=== PATIENT | male | born 1995 | race Caucasian/White ===

== ENCOUNTER 2022-01-25 07:26 | Outpatient (REF) | payer OTHER, SELFPAY ==
[2022-01-25 12:14] LABS: Alanine Aminotransferase 61 U/L (0-40); Albumin Level 4.6 g/dL (3.5-5.0); Alkaline Phosphatase 77 U/L (39-117); Anion Gap 13 (12-20); Aspartate Amino Transferase 35 U/L (5-37); Bilirubin Total 0.9 mg/dL (0.0-1.0); Blood Urea Nitrogen 10 mg/dL (9-16); Calcium 9.8 mg/dL (8.4-10.2); Carbon Dioxide 29 mmol/L (22-29); Chloride 102 mmol/L (96-108); Cholesterol 183 mg/dL; Estimated Glomerular Filt Rate > 60; Glucose Fasting 104 mg/dL (60-99); HDL Cholesterol 57 mg/dL; LDL Cholesterol Calculated 105 mg/dl; Sodium 140 mmol/L (135-145); Total Protein 7.5 g/dL (6.5-8.0); Triglycerides 107 mg/dL
[2022-01-25 12:15] LABS: HBS Num1 1.11 mIU/mL (0-7.99); HBc Num1 0.17 S/CO (0.00-0.79); HBsAGNum1 0.18 S/CO (0.00-0.99); HIV AB/AG Nonreactive (Nonreactive); HIV Num 1 0.07 S/CO (0.00-0.99); Hepatitis B Core Antibody Nonreactive (Nonreactive); Hepatitis B Surface Antigen Negative (Negative); ~HepC Num1 0.11 S/CO (0.00-0.79); ~Hepatitis B Surface Antibody NONREACTIVE (Nonreactive); ~Hepatitis C Antibody Nonreactive (Nonreactive)
[2022-01-25 12:21] LABS: Syphilis Screen Nonreactive (Nonreactive)
[2022-01-25 12:37] LABS: TSH reflex Free T4 1.52 uIU/mL (0.32-4.0)
== END 2022-01-25 07:27 | disposition home or self-care (01) ==
LOC: HO.WFDLDS 07:26
PROVIDERS: Visit Provider Family Medicine
DX: Z00.00 Encounter for general adult medical examination without abnormal findings (principal); Z11.3 Encounter for screening for infections with a predominantly sexual mode of transmission
CPT/HCPCS: 36415; 80053; 80061; 84443; 86704; 86706; 86780; 86803; 87340; 87389

== ENCOUNTER 2022-01-26 14:07 | Outpatient (REF) | payer OTHER, SELFPAY ==
[2022-01-27 13:40] LABS: CT PCR NOT DETECTED (Not Detect.); NG PCR NOT DETECTED (Not Detect.)
== END 2022-01-26 14:08 | disposition home or self-care (01) ==
LOC: HO.LNP 14:07
PROVIDERS: Visit Provider Family Medicine
DX: Z00.00 Encounter for general adult medical examination without abnormal findings (principal); R74.01 Elevation of levels of liver transaminase levels; Z11.3 Encounter for screening for infections with a predominantly sexual mode of transmission
CPT/HCPCS: 87491; 87591

== ENCOUNTER 2022-04-13 10:52 | Outpatient (REF) | payer OTHER, SELFPAY ==
[2022-04-13 13:58] LABS: Estimated Average Glucose 85 mg/dL; Hemoglobin A1c % 4.6 %
[2022-04-13 14:35] LABS: Alanine Aminotransferase 45 U/L (0-40); Albumin Level 4.9 g/dL (3.5-5.0); Alkaline Phosphatase 65 U/L (39-117); Anion Gap 12 (12-20); Aspartate Amino Transferase 24 U/L (5-37); Bilirubin Total 1.2 mg/dL (0.0-1.0); Blood Urea Nitrogen 11 mg/dL (9-16); Calcium 9.6 mg/dL (8.4-10.2); Carbon Dioxide 25 mmol/L (22-29); Chloride 104 mmol/L (96-108); Estimated Glomerular Filt Rate > 60; Glucose Fasting 79 mg/dL (60-99); Potassium 3.8 mmol/L (3.3-5.1); Sodium 137 mmol/L (135-145); Total Protein 7.5 g/dL (6.5-8.0)
== END 2022-04-13 10:53 | disposition home or self-care (01) ==
LOC: HO.WFDLDS 10:52
PROVIDERS: Visit Provider Family Medicine
DX: Z00.00 Encounter for general adult medical examination without abnormal findings (principal); R73.01 Impaired fasting glucose; R74.01 Elevation of levels of liver transaminase levels
CPT/HCPCS: 36415; 80053; 83036

== ENCOUNTER 2024-02-05 08:50 | Outpatient (AMB) | payer BC, SELFPAY ==
--- NOTE | 2024-02-05 08:58 | MHC.OFFWIV ---
Intake Vital Signs 02/05/24 09:09 Height 5 ft 10 in Weight 195 lb BMI 28.0 BP 120/80 Blood Pressure Location Lt brachial Position Sitting Pulse 104 H Pulse Source Pulse Oximeter Temp 97.8 F Temp Source Temporal Artery Scan Intake Visit Reasons: EST/sinus pressure (lobby masked) Intake Note: pt is here today for sinus pressure started 1 week ago Patient Tobacco Use Status: Never used Tobacco Allergies carbamazepine [From Tegretol] Allergy (Mild, Verified 02/05/24 09:32) Hives cefprozil Allergy (Mild, Verified 02/05/24 09:32) Hives Medication List - Last Reconciled 02/05/24 by NADYA Peters azithromycin 500 mg PO DAILY Do you need a note to return to daycare/school/sports/work: Yes HPI HPI Comments History of Present Illness Details Patient is a 28-year-old male in today for sick visit. Reports that for the past week he has developed symptoms of sore throat, cough, sinus tenderness, headache. Has use [id number] ibuprofen with mild effect. States that he started to feel worse 2-3 days prior where he had chills at night. Reports 1 sick contact. Denies chest pain or shortness of breath. Denies nausea vomiting diarrhea denies any tingling or numbness. [facility] Medical History (Updated 02/05/24 @ 09:31 by NADYA Peters) Difficulty concentrating Social History Housing: House Patient Tobacco Use Status: Never used Tobacco e-Cigarette/Vaping Use: Never Used Second Hand Smoke Exposure: No service: No Current occupational status: employed Current occupational exposures/hazards: No Cognitive needs: No Hearing needs: No Vision needs: No Review of Systems Const All systems reviewed & are unremarkable except as noted in HPI and below Physical Exam Vital Signs: Last Vital Signs Temp 97.8 F 02/05/24 09:09 Pulse 104 H 02/05/24 09:09 BP 120/80 02/05/24 09:09 BMI result Body Mass Index 28.0 Const Other: Appearance: Alert.? Oriented X3.? No acute distress.? Head: Normocephalic, atraumatic, no step-offs or deformities Eyes: Pupils equal, round and reactive to light.?Sclera white. ENT: Pharynx erythema +tonsilar exudates. TM intact and pearly christy. + sinus tenderness. Neck: Normal inspection.? Neck supple.?Full ROM. CVS: Normal heart rate and rhythm.? Pulses normal.? Respiratory: No respiratory distress.? Breath sounds normal.? Neuro: Oriented X 3.? Results AMB Rapid Strep AMB Rapid Strep Negative Last Edit by Shayy Tillman MA on 02/05/24 09:34 Assessment & Plan Assessment & Plan (1) Strep throat: Comment: Obtain URI and strep swab. Patient clinical presentation consistent with strep throat +2 tonsils, erythema, +exudate. Will give patient azithromycin. Code(s): J02.0 - Streptococcal pharyngitis Plan: Take your medications as prescribed. If you were prescribed antibiotics today, it is important that you take your medication to their entirety, do not skip any doses, do not finish them early. Follow-up with your primary care provider this week. Return to the emergency department with new or worsening symptoms. Such as fevers, chills, chest pain, shortness of breath, nausea, vomiting, dizziness, headache, vision changes, lethargy In case of emergency call 911 Orders: Orders SARS-CoV2/FLU/RSV Today J06.9 - Acute upper respiratory infection, unspecified Medications: New azithromycin 500 mg PO DAILY 3 tabs 0RF Coding Level of Care Code Est Pt Level 3 (49401) Diagnoses Strep throat J02.0 Time Spent (min) 26
[2024-02-05 09:09] VITALS: BP 120/80; PULSE 104; TEMP 36.6; BMI 28.0
== END 2024-02-05 09:51 | disposition home or self-care (01) ==
PROVIDERS: PCP Family Medicine; Visit Provider Nurse Practitioner Primary Care
DX: J02.0 Streptococcal pharyngitis (principal)
CPT/HCPCS: 87880; 99213

== ENCOUNTER 2024-02-05 10:43 | Outpatient (REF) | payer BC, SELFPAY ==
[2024-02-05 11:25] LABS: Influenza A PCR NEGATIVE (Negative); Influenza B PCR NEGATIVE (Negative); Resp Syncy Virus RNA Qual PCR NEGATIVE (Negative); SARS COV2 PCR INHOUSE NEGATIVE (Negative)
== END 2024-02-05 10:44 | disposition home or self-care (01) ==
LOC: HO.LNP 10:43
PROVIDERS: Visit Provider Nurse Practitioner Primary Care
DX: J06.9 Acute upper respiratory infection, unspecified (principal)
CPT/HCPCS: 0241U